=== PATIENT | male | born 1930 | race Caucasian/White ===

== ENCOUNTER 2017-11-25 10:15 | Emergency (ER) | payer OTHER, BC ==
--- NOTE | 2017-11-25 12:27 | EDPHY ---
General Time Seen by Provider: 11/25/17 12:04 Narrative: CHIEF COMPLAINT: Fall on Saturday, right knee pain HISTORY OF PRESENT ILLNESS: Patient presents with complaints of right knee pain and right groin pain. His son is at bedside with him. The son was inside the house when he was notified by a family member that the patient had fallen outside. They do all live together. He went outside to find that the patient follow up on the ground. The patient says he tripped, landing on his right knee. Since then he has had moderate to severe pain in the right knee with any weight-bearing or bending of the knee. He has a mild right groin pain that has started to improve. He has no numbness, tingling or weakness. No head strike or loss of consciousness. No chest, back or abdominal pain. No complaints elsewhere. No other associated complaints or modifying factors ESTABLISHED ORTHOPEDIST: None REVIEW OF SYSTEMS: Ten systems reviewed and are negative unless otherwise noted in the HPI PAST MEDICAL HISTORY: Dementia. No anticoagulation use PAST SURGICAL HISTORY: No recent surgeries. Remote surgeries unrelated SOCIAL HISTORY: Never smoker. 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 Lives independently with his son locally FAMILY HISTORY: Noncontributory EXAMINATION General Appearance: Alert, no distress HEENT: Normocephalic atraumatic. Pupils equal round reactive. EOM symmetric without nystagmus Cardiovascular: Symmetric radial pulses 2+. Symmetric DP pulses 2+. Neurological: GCS 15. A&O, since the lower extremities symmetric. Strength of the great toe symmetric 5/5. Skin: Warm and dry, no rash no petechiae or purpura no puncture. Extremities: No tenderness of the right greater trochanter or inguinal canal. There is tenderness of the right patella and anterior joint of the knee. Range of motion of the knee is complete but painful, more with extension and flexion. Special test not performed due to pain and fracture on x-ray. There is no deformity. No tenderness to the right ankle, midfoot or calcaneus with from palpation. Psychiatric: Mood and affect normal DIFFERENTIAL DIAGNOSES: Including but not limited to sprain, strain, fracture, dislocation, subluxation MDM: 12:00 p.m. Mechanical fall with right knee pain and patellar fracture that is nondisplaced. He is neuro intact distally. The patient and center asking to be placed on crutches to attempt to go home. We will place him in a knee immobilizer and provided crutches. They would like to try and go home, thus we will try this. He is awake alert no acute distress. Baseline dementia no injury elsewhere with a negative hip x-ray. 12:25 p.m. The patient failed and ambulation attempt with crutches. He tried again with a walker and has been able to do so satisfactory. The son states that he is happy with how the patient is ambulating with a walker. Patient feels comfortable ambulating with a walker, the nurses also comfortable with how he is walking with the walker. I have visualized this myself and I do agree that he is stable on the walker. He would like to go home with his walker and is immobilizer of the knee. He will be discharged stable conditions with mandatory orthopedic follow-up, and will also notify his primary care physician. We discussed ice and elevation. We discussed short course of pain medication as needed, he declines any narcotics. He has ED precautions and discharged in stable condition. SUPERVISION: This patient was independently evaluated without direct involvement of or examination by the attending physician. ED Precautions: Worsening pain. Erythema, edema, cyanosis, pallor, paresthesia or anesthesia. - History Smoking Status: Never smoked - Objective Vital Signs: Initial Vital Signs Temperature (C) 97.9 F 11/25/17 10:33 Heart Rate 92 11/25/17 10:33 Respiratory Rate 20 11/25/17 10:33 Blood Pressure 127/80 H 11/25/17 10:33 O2 Sat (%) 96 11/25/17 10:33 O2 Delivery Mode Room Air Allergies/Adverse Reactions: Penicillins Allergy (Verified 11/25/17 10:33) Home Medications: Medication Instructions Recorded Donepezil HCl 11/25/17 Departure - Departure Disposition: Home, Routine, Self-Care Clinical Impression: Right patella fracture Qualifiers: Encounter type: initial encounter Fracture type: closed Fracture morphology: unspecified fracture morphology Fracture alignment: nondisplaced Qualified Code( s): S82.001A - Unspecified fracture of right patella, initial encounter for closed fracture Fall Qualifiers: Encounter type: initial encounter Qualified Code(s): W19.XXXA - Unspecified fall, initial encounter Condition: Good Instructions: Patellar Fracture (ED) Additional Instructions: 1. Use walker with assistance at all times while ambulatory 2. Contact primary care physician and orthopedist for outpatient definitive care 3. Ice and elevation often 4. Ibuprofen 400 mg every 6-8 hours as needed for pain 5. ED precautions as discussed Referrals: Michael Croft MD [Medical Doctor] - As per Instructions Michael Banda MD [Medical Doctor] - As per Instructions
[2017-11-25 12:46] VITALS: BP 135/82
== END 2017-11-25 12:47 | disposition home or self-care (01) ==
DX: S82.001A Unspecified fracture of right patella, initial encounter for closed fracture (principal); W01.0XXA Fall on same level from slipping, tripping and stumbling without subsequent striking against object, initial encounter
CPT/HCPCS: 73502; 73564; 99284; L1830